=== PATIENT | male | born 1980 | race Hispanic/Latino ===

== ENCOUNTER 2017-05-22 22:31 | Emergency (ER) | payer OTHER, SELFPAY ==
[2017-05-22] MEDS ORDERED: Cyclobenzaprine 10 MG TAB ONE (23:23)
[2017-05-22] MEDS ORDERED: HYDROcodone/Acetaminophen 10/325 mg Tablet ONE (23:23)
[2017-05-22] MEDS ORDERED: Ketorolac Tromethamine 30 MG/ML VIAL ONE (23:23)
== END 2017-05-22 23:48 | disposition home or self-care (01) ==
LOC: ERS 22:31
DX: M54.5 Low back pain (principal); E78.5 Hyperlipidemia, unspecified; F17.210 Nicotine dependence, cigarettes, uncomplicated
CPT/HCPCS: 96372; J1885

== ENCOUNTER 2018-04-03 20:06 | Emergency (ER) | payer BC, SELFPAY ==
[2018-04-03 20:43] LABS: #Basophils 0.1 thou/uL (0.0-0.2); #Eosinphils 0.1 thou/uL (0.0-0.7); #Lymphocytes 2.5 thou/uL (1.20-3.40); #Monocytes 1.3 thou/uL (0.11-0.59); #Neutrophils 13.2 thou/uL (1.40-6.50); %Basophils 0.6 % (0.0-1.0); %Eosinophils 0.7 % (0.0-10.0); %Lymphocytes 14.6 % (21.0-51.0); %Monocytes 7.5 % (0.0-10.0); %Neutrophils 76.7 % (42.0-75.0); Hemoglobin 18.1 g/dL (14.0-18.0); Mean Corpuscular Hemoglobin 30.8 pg (27.0-31.0); Mean Corpuscular Volume 88.1 fL (78.0-98.0); Platelet Count 320 thou/uL (130-400); RBC Distribution Width 12.3 % (11.5-14.5); Red Blood Cell (RBC) Count 5.86 mill/uL (4.70-6.10); White Blood Cell (WBC) Count 17.3 thou/uL (4.8-10.8)
[2018-04-03 21:04] LABS: ALT (SGPT) 32 U/L (8-55); AST (SGOT) 23 U/L (5-34); Albumin 5.1 g/dL (3.5-5.0); Alkaline Phosphatase 76 U/L (40-150); Anion Gap 17 mmol/L (10-20); BUN (Urea Nitrogen) 19 mg/dL (8.9-20.6); Bilirubin, Total 0.6 mg/dL (0.2-1.2); CK (CPK) 219 U/L (30-200); Calc. Creatinine Clearance 0 mL/min (70-130); Calcium 10.4 mg/dL (7.8-10.44); Carbon Dioxide 21 mmol/L (22-29); Chloride 101 mmol/L (98-107); Estimated GFR-MDRD 25; Globulin 3.9 g/dL (2.4-3.5); Glucose 102 mg/dL (70-105); Sodium 135 mmol/L (136-145)
[2018-04-03 21:13] LABS: CKMB 3.2 ng/mL (0-6.6); Troponin I Less than 0.010 ng/mL (< 0.028)
== END 2018-04-04 00:24 | disposition home or self-care (01) ==
LOC: ERS 20:06
DX: E86.0 Dehydration (principal); N17.9 Acute kidney failure, unspecified; R25.2 Cramp and spasm; E78.5 Hyperlipidemia, unspecified; F17.210 Nicotine dependence, cigarettes, uncomplicated
CPT/HCPCS: 36415; 80053; 82553; 84484; 85025; 93005; 96360

== ENCOUNTER 2019-05-14 03:10 | Inpatient (IN) | payer BC, SELFPAY ==
[2019-05-14] MEDS ORDERED: Ondansetron PF 4 MG/2 ML Vial ONE (03:44)
[2019-05-14] MEDS ORDERED: Morphine 4 MG/ML VIAL ONE ×2 (03:44→06:17)
[2019-05-14] MEDS ORDERED: Piperacillin/Tazobactam 4.5 GM VIAL ONE (05:52)
[2019-05-14 06:30] LABS: ALT (SGPT) 33 U/L (8-55); AST (SGOT) 18 U/L (5-34); Albumin 4.2 g/dL (3.5-5.0); Alkaline Phosphatase 68 U/L (40-150); Anion Gap 13 mmol/L (10-20); BUN (Urea Nitrogen) 14 mg/dL (8.9-20.6); Bilirubin, Total 0.2 mg/dL (0.2-1.2); Calc. Creatinine Clearance 0 mL/min (70-130); Carbon Dioxide 26 mmol/L (22-29); Chloride 106 mmol/L (98-107); Estimated GFR-MDRD 85; Globulin 3.4 g/dL (2.4-3.5); Glucose 115 mg/dL (70-105); Lipase 44 U/L (8-78); Potassium 3.9 mmol/L (3.5-5.1); Protein, Total 7.6 g/dL (6.0-8.3); Sodium 141 mmol/L (136-145)
[2019-05-14 06:43] LABS: #Eosinphils 0.2 thou/uL (0.0-0.7); #Lymphocytes 3.2 thou/uL (1.20-3.40); #Monocytes 0.8 thou/uL (0.11-0.59); #Neutrophils 6.2 thou/uL (1.40-6.50); %Basophils 0.2 % (0.0-1.0); %Eosinophils 2.3 % (0.0-10.0); %Lymphocytes 30.4 % (21.0-51.0); %Neutrophils 59.1 % (42.0-75.0); Hemoglobin 17.5 g/dL (14.0-18.0); Mean Corpuscular HGB CONC 34.4 g/dL (32.0-36.0); Mean Corpuscular Hemoglobin 30.9 pg (27.0-31.0); Mean Corpuscular Volume 89.9 fL (78.0-98.0); Platelet Count 284 thou/uL (130-400); Red Blood Cell (RBC) Count 5.67 mill/uL (4.70-6.10); White Blood Cell (WBC) Count 10.6 thou/uL (4.8-10.8)
[2019-05-14] MEDS ORDERED: Acetaminophen 325 MG TAB PO PRN (06:52)
[2019-05-14] MEDS ORDERED: Morphine 4 MG/ML VIAL SLOW IVP PRN ×2 (06:52→13:36)
[2019-05-14] MEDS ORDERED: Ondansetron ODT 4 MG TAB SL PRN (06:53)
[2019-05-14] MEDS ORDERED: Ondansetron PF 4 MG/2 ML Vial IVP PRN ×2 (06:53→13:36)
[2019-05-14] MEDS ORDERED: Lactated Ringer's 1,000 ML IV SCH (07:00)
--- NOTE | 2019-05-14 07:37 | ULT ---
RIGHT UPPER QUADRANT ULTRASOUND: INDICATION: Right upper quadrant pain. COMPARISON: None. FINDINGS: There is diffuse fatty infiltration of the liver. No focal hepatic lesion is evident. The pancreas is largely obscured. There is a gallstone within the gallbladder neck. There is mild gallbladder wall thickening measurin g 5.1 mm. There is report of a positive sonographic Cueva's sign. No pericholecystic fluid is demo nstrated. The right kidney measured 10.7 x 5.6 x 6.2 cm. No focal renal lesion or hydronephrosis is evident. The common bile duct is dilated measuring 7.2 mm. IMPRESSION: 1. Cholelithiasis with gallbladder wall thickening and positive sonographic Cueva's sign is suspici ous for acute calculus cholecystitis. Would recommend correlation with clinical examination. 2. Dilatation of the common bile duct of 7.2 mm is suspicious for a distal obstructive process such as a distal stone. MRCP or ERCP may be helpful for further evaluation. POS: PETER
[2019-05-14 10:00] VITALS: BMI 29.6
[2019-05-14] MEDS ORDERED: Piperacillin/Tazobactam 3.375 GM in Sodium Chloride 0.9% 100 ML IVPB SCH (12:00)
[2019-05-14] MEDS ORDERED: hydrALAZINE 20 MG/ML VIAL SLOW IVP PRN (13:36)
[2019-05-14] MEDS ORDERED: Mag-Al 1200 mg/1200 mg/30 ML UDCUP PO PRN (13:36)
[2019-05-14] MEDS ORDERED: Calcium Carbonate 500 MG ChewTAB PO PRN (13:36)
[2019-05-14] MEDS ORDERED: Dextrose 5% in Water 1,000 ML IV PRN (13:36)
[2019-05-14] MEDS ORDERED: Dextrose 50% Abboject 50 ML SYRINGE SLOW IVP PRN (13:36)
[2019-05-14] MEDS ORDERED: HYDROcodone/Acetaminophen 10/325 mg Tablet PO PRN (13:36)
[2019-05-14] MEDS ORDERED: Morphine 2 MG/ML SYRINGE SLOW IVP PRN (13:36)
[2019-05-14] MEDS ORDERED: Promethazine HCl 25 MG/ML VIAL IM PRN (13:36)
--- NOTE | 2019-05-14 14:09 | HP ---
CHIEF COMPLAINT: Upper abdominal pain. HISTORY OF PRESENT ILLNESS: This is a 38-year-old male, who presents with a history of sharp pain in his right upper quadrant, described as 8/10, radiates around toward the right back, associated with nausea, no vomiting. No fevers or chills. No change in stools. He had similar symptoms last week that resolved. Never known he had previous known history of gallstones, jaundice, or pancreatitis. Ultrasound shows evidence of gallbladder wall thickening and gallstones. His common bile duct is borderline. His liver function tests are normal. PAST MEDICAL HISTORY: Denies. PAST SURGICAL HISTORY: Denies. MEDICATIONS: Taken daily, none. ALLERGIES: NO KNOWN DRUG ALLERGIES. SOCIAL HISTORY: He smokes. No alcohol or other drugs. REVIEW OF SYSTEMS: Ten-system review of systems is otherwise negative unless described above. PHYSICAL EXAMINATION: VITAL SIGNS: Blood pressure 165/94, pulse 66, respirations 18, and temperature 97.6. HEENT: Sclerae anicteric. Oropharynx clear. NECK: No lymphadenopathy. CHEST: Clear. HEART: Regular rate and rhythm. ABDOMEN: Soft, tender in the right upper quadrant, localized guarding. No rebound. No abdominal hernias. No ischemic edema to extremities. LABORATORY DATA: White blood cell count is 10, hemoglobin 17. Creatinine 0.98. Liver function tests normal. ASSESSMENT: Acute cholecystitis. PLAN: Laparoscopic cholecystectomy. Risks, benefits, and alternatives were discussed. He gives consent. We will do this tomorrow. Job ID: [id number]
[2019-05-14] MEDS: D5 1/2 NS w/20 mEq KCL 1,000 ML IV SCH ×2 (15:30→20:26)
[2019-05-14] MEDS: cefOXitin 2 GM in Sodium Chloride 0.9% 100 ML IVPB SCH ×2 (15:30→20:25)
[2019-05-14] MEDS: Famotidine/PF 20 mg/2ml Vial SLOW IVP SCH (20:25)
[2019-05-14] MEDS: Famotidine 20 MG TAB PO SCH (21:51)
[2019-05-15] MEDS: cefOXitin 2 GM in Sodium Chloride 0.9% 100 ML IVPB SCH (05:36)
[2019-05-15] MEDS: D5 1/2 NS w/20 mEq KCL 1,000 ML IV SCH (05:36)
[2019-05-15 06:22] LABS: ALT (SGPT) 35 U/L (8-55); AST (SGOT) 18 U/L (5-34); Albumin 3.5 g/dL (3.5-5.0); Alkaline Phosphatase 51 U/L (40-150); Anion Gap 9 mmol/L (10-20); BUN (Urea Nitrogen) 7 mg/dL (8.9-20.6); Bilirubin, Total 0.2 mg/dL (0.2-1.2); Calc. Creatinine Clearance 153 mL/min (70-130); Calcium 8.3 mg/dL (7.8-10.44); Carbon Dioxide 24 mmol/L (22-29); Chloride 105 mmol/L (98-107); Estimated GFR-MDRD Greater than 90; Globulin 2.7 g/dL (2.4-3.5); Glucose 97 mg/dL (70-105); Lipase 32 U/L (8-78); Potassium 3.8 mmol/L (3.5-5.1); Protein, Total 6.2 g/dL (6.0-8.3); Sodium 134 mmol/L (136-145)
[2019-05-15] MEDS: Famotidine/PF 20 mg/2ml Vial SLOW IVP SCH (08:01)
[2019-05-15] MEDS: Famotidine 20 MG TAB PO SCH (08:03)
[2019-05-15] MEDS ORDERED: Midazolam HCl 2 mg/2 ml Vial ONE ×2 (09:01→09:52)
[2019-05-15] MEDS ORDERED: Fentanyl 100 MCG/2 ML VIAL ONE ×2 (09:52→11:23)
[2019-05-15] MEDS ORDERED: Iothalamate Meglumine 60% 50 ML VIAL FS ONE (09:54)
[2019-05-15] MEDS ORDERED: Bupivacaine/Epinephrine 0.25% 30 ML VIAL ONE (09:54)
[2019-05-15] MEDS ORDERED: Ondansetron HCl/PF 4 MG/2 ML Vial IVP PRN (10:59)
[2019-05-15] MEDS ORDERED: Promethazine HCl 25 MG/ML VIAL IM PRN ×2 (10:59→12:34)
[2019-05-15] MEDS ORDERED: Promethazine HCl 25 MG/ML VIAL SLOW IVP PRN (10:59)
[2019-05-15] MEDS ORDERED: Sodium Chloride 0.9% 1,000 ML IV SCH (12:34)
[2019-05-15] MEDS ORDERED: HYDROcodone/Acetaminophen 10/325 mg Tablet PO PRN (12:34)
[2019-05-15] MEDS ORDERED: Morphine 2 MG/ML SYRINGE SLOW IVP PRN (12:34)
[2019-05-15] MEDS ORDERED: Ondansetron PF 4 MG/2 ML Vial IVP PRN (12:34)
[2019-05-15] MEDS ORDERED: Mag-Al 1200 mg/1200 mg/30 ML UDCUP PO PRN (12:34)
[2019-05-15] MEDS ORDERED: Morphine 4 MG/ML VIAL SLOW IVP PRN (12:34)
[2019-05-15] MEDS ORDERED: hydrALAZINE 20 MG/ML VIAL SLOW IVP PRN (12:34)
[2019-05-15] MEDS ORDERED: Dextrose 5% in Water 1,000 ML IV PRN (12:34)
[2019-05-15] MEDS ORDERED: Dextrose 50% Abboject 50 ML SYRINGE SLOW IVP PRN (12:34)
[2019-05-15] MEDS ORDERED: Calcium Carbonate 500 MG ChewTAB PO PRN (12:34)
--- NOTE | 2019-05-15 13:25 | RAD ---
XR Cholangiogram in Surgery History: Laparoscopic cholecystectomy. Comparison: Gallbladder ultrasound prior day Findings: Adequate contrast within the biliary system without dilatation. Impression: Adequate contrast within the biliary system without dilatation.
--- NOTE | 2019-05-15 15:52 | OP ---
DATE OF PROCEDURE: 05/15/2019 PREOPERATIVE DIAGNOSIS: Acute cholecystitis. POSTOPERATIVE DIAGNOSIS: Acute cholecystitis. PROCEDURE PERFORMED: Laparoscopic cholecystectomy with cholangiogram. ANESTHESIA: General. ESTIMATED BLOOD LOSS: Minimal. COMPLICATIONS: None. SPECIMEN: Gallbladder. FINDINGS: Normal cholangiogram. DESCRIPTION OF PROCEDURE: The patient was taken to the operating room and laid supine on the operating room table. After general anesthetic was obtained, the abdomen was shaved, prepped, and draped in sterile fashion. A curved incision was made below the umbilicus, cautery was dissected down and a small charles was made in the fascia. Abdominal cavity was entered bluntly using a Bettye clamp. Holding stitch of PDS was placed on each side of the fascia. Jasper trocar was placed. High-flow pneumoperitoneum was obtained. Upper midline 5-mm port and right lower quadrant 5-mm ports were placed under direct visualization. Gallbladder was retracted from the gallbladder fossa. The peritoneum was opened anteriorly and posteriorly. The critical view triangle was seen showing only the cystic duct and cystic artery branching medial to lateral. There were no branching structures. A clip was placed on the cystic duct. A small ductotomy was made just proximal to that. A cholangiocatheter was brought in through a separate stab incision. Cholangiogram was performed,, which shows good contrast flow into the duodenum, right and left hepatic duct system without obstruction. Cholangiocatheter was removed and 2 clips were placed proximally on the cystic duct, it was cut using laparoscopic scissors. Cystic artery was taken using 2 clips proximally and 1 clip distally, cut using laparoscopic scissors. Cautery was used to dissect the gallbladder and gallbladder fossa. Gallbladder was placed in an Endo Catch bag and brought out through the Jasper. There was no bleeding in the liver bed. All port sites were infiltrated using local anesthetic. All ports were removed under camera visualization, pneumoperitoneum was let down. PDS was used to close the fascial defect below the umbilicus. All incisions were irrigated and closed using 4-0 Monocryl and Dermabond. The patient was sent to Recovery in stable condition. All instrument counts, needle counts, and lap counts are correct. Job ID: [id number]
[2019-05-15 18:20] VITALS: BP 123/70; TEMP 98.2
[2019-05-15] MEDS ORDERED: Famotidine 20 MG TAB PO SCH (21:00)
[2019-05-15] MEDS ORDERED: Famotidine/PF 20 mg/2ml Vial SLOW IVP SCH (21:00)
[2019-05-15] MEDS ORDERED: PROPOFOL 200 MG/20 ML VIAL ONE (22:27)
[2019-05-15] MEDS ORDERED: Ondansetron PF 4 MG/2 ML Vial ONE (22:27)
[2019-05-15] MEDS ORDERED: Dexamethasone 20 MG/5 ML VIAL ONE (22:27)
[2019-05-15] MEDS ORDERED: Ketorolac Tromethamine 30 MG/ML VIAL ONE (22:27)
[2019-05-15] MEDS ORDERED: Rocuronium Bromide 10 MG/ML (10ML VIAL) ONE (22:27)
[2019-05-15] MEDS ORDERED: Lidocaine 1% PF 5 ML VIAL ONE (22:27)
[2019-05-15] MEDS ORDERED: Glycopyrrolate 0.2 MG/ML 5 ML SYRINGE ONE (22:27)
--- NOTE | 2019-05-17 06:16 | PQF ---
ADELFO MILLER BRYAN DAVID MD [id number] CLINICAL DOCUMENTATION CLARIFICATION FORM: POST DISCHARGE Addendum to original discharge summary date: ____ Late entry note date: __ DATE:05-17-2019 ATTN:Nsaim Sauceda Please exercise your independent, professional judgment in responding to the clarification form. Clinical indicators are provided on the bottom of this form for your review Can you please specify the clinical significance of the indicators below. Please check appropriate box(s): [ ] Hyponatremia [ ] Insignificant laboratory finding [ ] Other diagnosis please specify: [ ] Unable to determine For continuity of documentation, please document condition throughout progress notes and discharge summary. Thank You. CLINICAL INDICATORS: ED 05/14 pg.3 right upper abdominal pain associated with nausea, reports BM prior to ER arrival HP 05/[address] Estes ultrasound shows evidence of gallbladder wall thickening and gallstones Op note 05/[address] Estes Acute cholecystitis Laboratory: Sodium= 141 (05/14), 134 L (05/15) RISK FACTORS: Dr. Estes- Laparscopic cholecystectomy Dr. Estes- Acute Cholecystitis TREATMENT: OCT 28-Sodium Chloride 0.9% Laboratory monitoring OCT 28- IVF (This form is maintained as a part of the permanent medical record) 2014 [employer]. All Rights Reserved Dinora [email or web address] [not [email or web address]] MTDD
== END 2019-05-15 19:13 | disposition home or self-care (01) | DRG 419 ==
LOC: ERS 03:10 → SURG B 07:57
PROVIDERS: ADMIT Surgery; ATTEND Surgery
PROC: 0FT44ZZ Resection of Gallbladder, Percutaneous Endoscopic Approach (ICD-10-PCS; principal; 2019-05-15)
PROC: BF0CYZZ Plain Radiography of Hepatobiliary System, All using Other Contrast (ICD-10-PCS; 2019-05-15)
DX: K80.00 Calculus of gallbladder with acute cholecystitis without obstruction (principal)
CPT/HCPCS: 36415; 47532; 76705; 80053; 83690; 85025; 88304; 93005; 96361; 96365; 96375; 96376; J0694; J1100; J1885; J2001; J2250; J2270; J2405; J2543; J2704; J3010; J3490; S0028

== ENCOUNTER 2019-12-18 18:49 | Emergency (ER) | payer OTHER, SELFPAY ==
[2019-12-18 19:22] LABS: #Basophils 0.1 thou/uL (0.0-0.2); #Eosinphils 0.1 thou/uL (0.0-0.7); #Lymphocytes 2.3 thou/uL (1.20-3.40); #Monocytes 0.7 thou/uL (0.11-0.59); #Neutrophils 10.8 thou/uL (1.40-6.50); %Basophils 0.7 % (0.0-1.0); %Lymphocytes 16.3 % (21.0-51.0); %Monocytes 5.2 % (0.0-10.0); %Neutrophils 76.8 % (42.0-75.0); Hemoglobin 17.5 g/dL (14.0-18.0); Mean Corpuscular HGB CONC 32.8 g/dL (32.0-36.0); Mean Corpuscular Hemoglobin 29.5 pg (27.0-31.0); Mean Corpuscular Volume 90.2 fL (78.0-98.0); Mean Platelet Volume 8.5 fL (7.4-10.4); Platelet Count 317 thou/uL (130-400); Red Blood Cell (RBC) Count 5.94 mill/uL (4.70-6.10)
--- NOTE | 2019-12-18 19:28 | RAD ---
AP CHEST: 12/18/19 HISTORY: Chest pain. COMPARISON: 07/26/16. Lung naranjo are clear. Heart and mediastinum appear normal. Vasculature is normal. IMPRESSION: Unremarkable chest. POS: AGW
[2019-12-18 19:45] LABS: ALT (SGPT) 31 U/L (8-55); AST (SGOT) 14 U/L (5-34); Albumin 4.3 g/dL (3.5-5.0); Alkaline Phosphatase 72 U/L (40-110); Anion Gap 14 mmol/L (10-20); BUN (Urea Nitrogen) 14 mg/dL (8.9-20.6); Bilirubin, Total 0.3 mg/dL (0.2-1.2); CK (CPK) 70 U/L (30-200); Calc. Creatinine Clearance 0 mL/min (70-130); Calcium 10.6 mg/dL (7.8-10.44); Carbon Dioxide 27 mmol/L (22-29); Chloride 101 mmol/L (98-107); Estimated GFR-MDRD Greater than 90; Globulin 3.7 g/dL (2.4-3.5); Glucose 107 mg/dL (70-105); Lipase 33 U/L (8-78); Sodium 138 mmol/L (136-145)
[2019-12-18] MEDS ORDERED: Morphine 4 MG/ML VIAL ONE (19:56)
[2019-12-18] MEDS ORDERED: Ondansetron PF 4 MG/2 ML Vial ONE (19:56)
[2019-12-18 20:30] LABS: Bilirubin Negative (Negative); Blood, Urine Negative (Negative); Clarity Clear (Clear); Glucose, Urine (Dipstick) Normal (Negative); Leukocyte Negative Leu/uL (Negative); Nitrite Negative (Negative); Protein, Urine (Dipstick) Negative (Neg-Trace); Urobilinogen Normal mg/dL (Less than 2)
[2019-12-18] MEDS ORDERED: Ketorolac Tromethamine 30 MG/ML VIAL ONE (20:58)
[2019-12-18] MEDS ORDERED: Lidocaine Viscous Sol 2% 15 ml UD Cup ONE (21:09)
[2019-12-18] MEDS ORDERED: Milk Of Magnesia 30 ML UDCUP ONE (21:09)
[2019-12-18 21:23] LABS: Amphetamine Not Detected (NotDetected); Barbiturates Screen Not Detected (NotDetected); Benzodiazepine Screen Not Detected (NotDetected); Cocaine Metabolite Screen Not Detected (NotDetected); Medtox Control Line Valid? VALID (VALID); Medtox Reader # READER 4; Methadone Not Detected (NotDetected); Methamphetamine Not Detected (NotDetected); Opiate Screen Not Detected (NotDetected); Oxycodone Screen Not Detected (NotDetected); Phencyclidine (PCP) Not Detected (NotDetected); THC/Cannabinoid Screen Not Detected (NotDetected); Tricyclic Screen Not Detected (NotDetected)
[2019-12-18 22:15] LABS: Troponin I Less than 0.010 ng/mL (< 0.028)
[2019-12-19 10:11] LABS: SARS-CoV-2 MS2 Positive; SARS-CoV-2 N Gene Negative; SARS-CoV-2 S Gene Negative; SARS-CoV-2 orf1ab Negative
--- NOTE | 2019-12-19 15:04 | EKG ---
Test Reason : CP,SOB,COUGH Blood Pressure : / mmHG Vent. Rate : 065 BPM Atrial Rate : 065 BPM P-R Int : 132 ms QRS Dur : 088 ms QT Int : 410 ms P-R-T Axes : 028 074 040 degrees QTc Int : 426 ms Normal sinus rhythm Possible Left atrial enlargement Septal infarct , age undetermined Abnormal ECG Confirmed by RADHA MONDRAGON DO ([id number]), medical transcription editor SO CORDERO ([id number]) on 12/19/2019 3:04:17 PM Referred By: Confirmed By:RADHA MONDRAGON DO
== END 2019-12-18 22:47 | disposition home or self-care (01) ==
LOC: ERS 18:49
DX: R07.9 Chest pain, unspecified (principal); Z20.828 Contact with and (suspected) exposure to other viral communicable diseases
CPT/HCPCS: 71045; 80053; 80306; 81003; 82550; 83690; 83880; 84484; 85025; 85379; 87081; 87430; 87635; 87804; 93005; 96374; 96375; J1885; J2270; J2405; U0003

== ENCOUNTER 2020-02-13 18:26 | Emergency (ER) | payer OTHER, SELFPAY ==
[2020-02-14 15:09] LABS: SARS-CoV-2 MS2 Positive; SARS-CoV-2 N Gene Negative; SARS-CoV-2 S Gene Negative; SARS-CoV-2 orf1ab Negative
== END 2020-02-13 18:54 | disposition home or self-care (01) ==
LOC: ERS 18:26
DX: Z20.828 Contact with and (suspected) exposure to other viral communicable diseases (principal)
CPT/HCPCS: 87635; 99283; U0003